=== PATIENT | female | born 1970 | race Caucasian/White ===

== ENCOUNTER 2018-07-05 06:55 | Day surgery (SDC) | payer OTHER ==
[~2018-07-05] VITALS: Ht 162.6 cm; Wt 95.2 kg
[~2018-07-05 06:55] MED LIST: ASPI81TA85 PO; CELE40TA PO; CYCL10TA PO; LEVO50TA5 PO; LR 1,000 ML IV ONE; TRAZ-163 PO; maxide PO
[2018-07-05] MEDS ORDERED: ROPIvacaine 0.5% 30 ML INJECTION (J2795 PER 1MG) ONE (06:56)
[2018-07-05] MEDS ORDERED: EPINEPHrine INJ 1 MG/ML 1ML AMP ONE (06:56)
[2018-07-05 07:46] LABS: URINE PREG TEST NEGATIVE (NEGATIVE)
[2018-07-05] MEDS ORDERED: MIDAZOLAM INJ 2 MG/2 ML VIAL (J2250) As Ordered ONE (08:01)
[2018-07-05] MEDS ORDERED: PROPOFOL 200 MG/20 ML VIAL As Ordered ONE (08:01)
[2018-07-05] MEDS ORDERED: LIDOCAINE 2% INJ 100 MG/5 ML SDV (FOR ANES.) As Ordered ONE (08:01)
[2018-07-05] MEDS ORDERED: fentaNYL 100 MCG/2 ML INJECTION (J3010) As Ordered ONE ×2 (08:02→10:20)
[2018-07-05] MEDS ORDERED: BUPIVACAINE HCL 0.5% 30 ML VIAL As Ordered ONE (08:47)
[2018-07-05] MEDS ORDERED: ceFAZolin 2 GM/D5W 50 ML IV BAG (J0690 PER 500MG) As Ordered ONE (08:58)
[2018-07-05] MEDS ORDERED: dexameTHASONE 4 MG/ML 1ML VIAL (J1100) As Ordered ONE (10:30)
[2018-07-05] MEDS ORDERED: ONDANSETRON 4MG/2ML VIAL (J2405) As Ordered ONE (10:30)
[2018-07-05] MEDS ORDERED: KETOROLAC 60 MG/2 ML VIAL (J1885) As Ordered ONE (10:30)
[2018-07-05] MEDS ORDERED: LR 1,000 ML IV SCH (12:15)
[2018-07-05] MEDS ORDERED: NORCO, ANEXSIA 5/325MG TABLET (HYDROcodone/ACETAMINOPHEN) PO PRN (12:15)
[2018-07-05] MEDS ORDERED: ONDANSETRON 4MG/2ML VIAL (J2405) IV PRN (12:15)
[2018-07-05] MEDS ORDERED: oxyCODONE 5MG TAB PO PRN ×2 (12:15)
[2018-07-05] MEDS: fentaNYL 100 MCG/2 ML INJECTION (J3010) IV PRN ×4 (12:20→12:35)
--- NOTE | 2018-07-05 12:33 | REP ---
C-ARM VIEWS, LEFT FOOT: Multiple C-arm views left foot performed. Metallic screws are placed in the 1st metatarsal surgical defect proximally. 44 seconds fluoroscopy time utilized. Electronically Signed by Fernandez Donnelly MD 07/06/2018 09:15 A
[2018-07-05] MEDS ORDERED: MORPHINE 4 MG/ML 1ML VIAL/SYRINGE (J2270) As Ordered ONE (12:51)
[2018-07-05] MEDS: MORPHINE 10 MG/ML 1ML VIAL (J2270) IV PRN ×2 (12:57→13:09)
--- NOTE | 2018-07-05 13:42 | RO ---
DATE OF PROCEDURE: 07/05/2018 PREOPERATIVE DIAGNOSIS: Left hallux valgus deformity. POSTOPERATIVE DIAGNOSIS: Left hallux valgus deformity. PROCEDURE: Left bunionectomy and scar fasciotomy. SURGEON: Cecile Sanabria MD [employer]ANT REPAIRER: ASTRID Anton ANESTHESIA: LMA and 10 mL of 0.5% Marcaine. ESTIMATED BLOOD LOSS: 25 mL. COMPLICATIONS: None. CONDITION: Stable to recovery. INDICATIONS: Staci Oden is a 48-year-old female who has had long standing pain from a left bunion deformity. She has failed conservative measures. The risks and benefits of surgery were discussed with the patient in detail and include, but are not limited to infection, damage to nerves and blood vessels, need for additional procedures, continued pain and stiffness, and blood clot. Informed consent was obtained. PROCEDURE: The patient was met in the preoperative holding area where the left lower extremity was marked as the correct operative site. She was then taken to the operating room where she was placed in the supine position on the operating room table. Bony prominences were all padded. A well padded tourniquet was placed on the left upper thigh. The left lower extremity underwent a chlorhexidine scrub. She was then prepped and draped in a normal sterile fashion. An official time out was held where the correct patient, operative site and operative procedure were verified. At this point, the leg was exsanguinated and tourniquet was inflated to 275 mmHg. It was up for approximately 105 minutes. An incision was made in the first web space. Careful dissection to the level of the sesamoid was performed. The interval between the sesamoid and first metatarsal was released. Using varus and plantar flexion force I was able to gain a nice lateral release. Following this, incision was made over the medial aspect of the first metatarsal and extending up to the first MTP joint. The capsule was incised. Care was taken to avoid the dorsal medial sensory nerve. 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 The medial eminence was resected using a 38 mm saw. Following this, two 0.062 K-wires were placed in the region of the horizontal limbs of the osteotomy. Placement was confirmed on mini C-arm using AP views. When I was satisfied with the position of the wires, they were cut. Osteotomy was marked out with a Bovie and a marker. The vertical limbs were then cut using a 39 blade saw and the horizontal limb was cut using a 38 blade saw. It was further freed using a small thin osteotome. Following this, I was able to translate the first metatarsal approximately 6-7 mm. It was secured in place using 0.0745 K-wire. Reduction of the sesamoids and toe was confirmed on simulated weight bearing AP views. When I was satisfied with the reduction of the deformity, three 2.0 mm screws were placed across the osteotomy site. Two were placed in lag screw technique in the body and one into the metatarsal head. All screws had good bite. The prominent aspect of the limb was then shaved off. The capsule was closed using 2-0 fiber wire. Final x-rays were performed and the toe was found to be in good position as well as hardware was intact. All wounds were copiously irrigated. The soft tissues were closed using #3-0 Vicryl. The skin was closed using #3-0 nylon. The patient was placed into a well padded splint. The patient was then extubated and transferred to the recovery room in stable condition. PLAN: The patient will be nonweight bearing for 6 weeks in the splint. She will be on Xarelto for deep vein thrombosis (DVT) prophylaxis as she has a history of a blood clot.
[2018-07-05 16:00] VITALS: BP 163/86
== END 2018-07-05 16:06 | disposition home or self-care (01) ==
LOC: M SDC 06:55
PROVIDERS: ATTEND Orthopaedic Surgery
DX: M20.12 Hallux valgus (acquired), left foot (principal); E03.9 Hypothyroidism, unspecified; K58.8 Other irritable bowel syndrome; F41.9 Anxiety disorder, unspecified; F32.9 Major depressive disorder, single episode, unspecified; Z79.899 Other long term (current) drug therapy; Z91.040 Latex allergy status; Z88.2 Allergy status to sulfonamides; Z88.8 Allergy status to other drugs, medicaments and biological substances; Z79.82 Long term (current) use of aspirin
CPT/HCPCS: 28296; 76000; 84703; 97116; C1713; J0690; J1100; J1885; J2250; J2270; J2405; J2795; J3010